=== PATIENT | male | born 1940 | race Caucasian/White ===

== ENCOUNTER 2018-10-28 11:47 | Inpatient (IN) ==
[2018-10-22 10:57] LABS: URINE SOURCE CLEAN CATCH
[2018-10-22 11:02] LABS: BILIRUBIN URINE NEGATIVE (NEGATIVE); BLOOD URINE NEGATIVE (NEGATIVE); COLOR YELLOW; GLUCOSE URINE 70 mg/dL (NEGATIVE); KETONE URINE NEGATIVE (NEGATIVE); LEUKOCYTES URINE MODERATE (NEGATIVE); NITRITE URINE POSITIVE (NEGATIVE); PH URINE 6.5; PROTEIN URINE NEGATIVE (NEGATIVE); SP GRAVITY URINE 1.013; TURBIDITY URINE CLEAR (CLEAR); UR EPITHELIAL CELLS <10 /HPF (<10); URINE BACTERIA 4+ /HPF; URINE RBC <10 /HPF (<10); URINE WBC 20-40 /HPF (<10); UROBILINOGEN URINE NORMAL (NORMAL)
[2018-10-22 11:06] LABS: BASO# 0.05 X1000 (0.0-0.2); BASO% 0.9 % (0.0-0.8); EOS% 5.2 % (0.0-10.0); HEMATOCRIT 45.1 % (42.0-52.0); HEMOGLOBIN 14.7 g/dL (14.0-18.0); IMM GRAN# 0.02 X1000 (0.0-0.04); IMM GRAN% 0.3 % (0.0-0.5); LYMPH# 1.86 X1000 (1.2-3.4); LYMPH% 32.3 % (20.5-51.1); MCH 28.1 PG (27-31); MCHC 32.6 g/dL (33-37); MCV 86.2 FL (81-99); MONO# 0.54 X1000 (0.11-0.59); MONO% 9.4 % (1.7-9.3); MPV 11.5 FL (7.4-10.4); NEUT# 2.99 X1000 (1.4-6.5); NEUT% 51.9 % (42.2-75.2); PLT 201 X1000 (130-400); RBC 5.23 XMIL (4.7-6.1); RDW 14.5 % (11.5-14.5); WBC 5.76 X1000 (4.8-10.8)
[2018-10-22 11:40] LABS: INR 1.01; PROTIME 14.1 Seconds (11.0-16.0)
[2018-10-22 11:41] LABS: PTT 29.4 Seconds (22.3-41.8)
[2018-10-22 11:46] LABS: AGAP 12; BUN 13 mg/dL (8-22); CHLORIDE 101 mmol/L (98-107); COSMO 280; CREATININE 0.9 mg/dL (0.7-1.2); ESTIMATED GFR > 60; GLUCOSE 176 mg/dL (70-104); POTASSIUM 4.3 mmol/L (3.5-5.1); SODIUM 138 mmol/L (136-145); TCO2 25 mmol/L (25-35)
[2018-10-28] MEDS ORDERED: DIPRIVAN 1% ONE (12:13)
[2018-10-28] MEDS ORDERED: LYRICA ONE (12:22)
[2018-10-28] MEDS ORDERED: PEPCID ONE (12:22)
[2018-10-28] MEDS ORDERED: COLACE ONE (12:22)
[2018-10-28] MEDS ORDERED: REGLAN ONE (12:22)
[2018-10-28] MEDS ORDERED: KEFZOL 1 GM/D5W 2 GM/100 ML IVPB ONE (12:22)
[2018-10-28] MEDS ORDERED: CELEBREX ONE (12:22)
[2018-10-28] MEDS ORDERED: LR 1,000 ML ONE (12:23)
[2018-10-28] MEDS ORDERED: DURAMORPH ONE (13:40)
[2018-10-28] MEDS ORDERED: SODIUM CHLORIDE 0.9% ONE (13:40)
[2018-10-28] MEDS ORDERED: CYKLOKAPRON 1,000 MG/NS 2,000 MG/200 ML IVPB ONE (13:40)
[2018-10-28] MEDS ORDERED: SENSORCAINE-MPF 0.5%/EPI 1:200,000 ONE (13:40)
[2018-10-28] MEDS ORDERED: TORADOL ONE (13:40)
[2018-10-28] MEDS ORDERED: EXPAREL 1.3% ONE (13:41)
[2018-10-28] MEDS ORDERED: NEOSPORIN G.U. IRRIGANT ONE ×2 (13:42→13:51)
[2018-10-28] MEDS ORDERED: FENTANYL ONE (14:07)
[2018-10-28] MEDS ORDERED: OFIRMEV 1000 MG/ISOTONIC SOLN 1,000 MG/100 ML BOTTLE ONE (14:20)
[2018-10-28] MEDS ORDERED: DECADRON ONE (14:20)
[2018-10-28] MEDS ORDERED: VANCOMYCIN ONE (14:44)
--- NOTE | 2018-10-28 16:47 | PROGRESS NOTE ---
DATE: 10/28/2018 SUBJECTIVE DATA: Mr. Bazzi is seen postop day 0 of left total knee arthroplasty. He reports that he still has decreased sensation in that leg at this time. He also reports he has no pain at this time. OBJECTIVE DATA: The bandages are clean and dry of the left lower extremity. There is good capillary refill in the toes. There is decreased sensation still at this time due to anesthesia in the extremity. There is negative Homans sign. There is no active drainage. ASSESSMENT: Left total knee arthroplasty. PLAN: We will plan on monitoring Mr. Bazzi overnight. Plan is to hopefully send him home tomorrow with possible home health or outpatient therapy. We will send him home with pain medications and probably aspirin to prevent DVTs. We will check back on him in the morning. Dictated by MARIAA Long for Chang Garcia MD cc: MARIAA Long MD
--- NOTE | 2018-10-28 17:02 | Diag Imaging Result Doc PS360 ---
KNEE 1-2 VIEWS-LEFT - 10/28/2018 INDICATION: l tka TECHNIQUE: Two views COMPARISON: None FINDINGS: There has been left total knee arthroplasty with patellar resurfacing. Alignment is anatomic. No hardware fracture or loosening. IMPRESSION: No complication. Electronically signed by Mike Robles 10/28/2018 5:00 PM
[2018-10-28 17:03] LABS: URINE SOURCE CATH
[2018-10-28 17:11] LABS: BILIRUBIN URINE NEGATIVE (NEGATIVE); BLOOD URINE NEGATIVE (NEGATIVE); COLOR YELLOW; GLUCOSE URINE NEGATIVE (NEGATIVE); KETONE URINE NEGATIVE (NEGATIVE); LEUKOCYTES URINE SMALL (NEGATIVE); NITRITE URINE NEGATIVE (NEGATIVE); PROTEIN URINE NEGATIVE (NEGATIVE); SP GRAVITY URINE 1.015; TURBIDITY URINE CLEAR (CLEAR); UROBILINOGEN URINE NORMAL (NORMAL)
[2018-10-28] MEDS ORDERED: NS 1,000 ML ONE (17:11)
[2018-10-28 17:12] LABS: UR EPITHELIAL CELLS <10 /HPF (<10); URINE BACTERIA NEGATIVE /HPF; URINE RBC <10 /HPF (<10); URINE WBC <10 /HPF (<10)
--- NOTE | 2018-10-28 17:38 | OPERATIVE NOTE ---
PROCEDURE DATE: 10/28/2018 PREOPERATIVE DIAGNOSIS: Degenerative joint disease, left knee. POSTOPERATIVE DIAGNOSIS: Degenerative joint disease, left knee. PROCEDURE PERFORMED: Left total knee replacement. SURGEON: Everardo Garcia MD. AUDIT CONTROL CLERK: MARIAA Long. Mr. Sorensen was necessary for proper retraction and manipulation of the leg during the case. ANESTHESIA: Spinal. COMPLICATION: None. PROCEDURE IN DETAIL: This 78-year-old male presents for left knee replacement. Risks, benefits, and no guarantees were discussed and he is willing to proceed. He was taken to the operating room and satisfactory anesthesia obtained. The left knee was prepped and draped in usual sterile fashion. A time-out was taken to confirm operative site, procedure, and patient. The leg was wrapped with an Esmarch and the tourniquet inflated to 350 mmHg. A midline incision was made over the front of the knee followed by a quad tendon sparing arthrotomy. The patella was everted and resurfaced with freehand technique. The patella was then subluxed laterally and the knee flexed. An intramedullary hole made in the distal femur. Distal femoral cutting block was secured in 5 degrees of valgus and the distal femoral resection made. Afterwards, the femur was sized to a size 7 femoral implant. The 4-in-1 block was secured and the anterior, posterior, and chamfer cuts sequentially made. The PCL was retained for cruciate retaining design, any osteophytes debrided off the femur. Afterwards, the knee was flexed and a PCL retractor placed behind the tibia to protect the PCL neurovascular bundle. Tibial cutting block was secured and tibial resection made. Any osteophytes were debrided about the tibia. The tibia was sized to a size 7 tibial tray. Trial reduction was performed with a 7 tibial tray and a 7 mm thick polyethylene bearing with a size 7 femoral component. Good range of motion and stability was noted. The patella was sized to a 38 medialized dome patella. The drill holes were placed for the patellar implant and femoral component and the trial components removed. The bony surfaces were thoroughly irrigated with pulsatile lavage. A size 7 DePuy ERLinkune rotating platform tibial tray was cemented onto the tibia, followed by a size 7 left cruciate-retaining femoral component and a 38 medialized dome patella. Excess cement was removed with a [place] elevator. While the cement cured, the joint capsule was injected with Exparel for pain management and a Hemovac drain placed. After curing of the cement, a size 7 mm thick rotating platform polyethylene cruciate retaining bearing was inserted into the tibial tray and the knee reduced. Final range of motion was assessed from 0 to 130 degrees with midline patellar tracking and excellent soft tissue balance. The incision and arthrotomy was copiously irrigated with irrigant. It was closed over a drain with #1 Vicryl in the arthrotomy, 2-0 Vicryl in the subcutaneous and skin ally on the skin edges. Sterile dressings completed the closure and the patient was recovered from anesthesia and transferred to the recovery room in stable condition. No intraoperative complications were noted. Instrument count and sponge count was correct at the time of closure. cc: Chang Garcia MD
[2018-10-28] MEDS ORDERED: ZOFRAN IV PRN (18:45)
[2018-10-28] MEDS ORDERED: AMBIEN PO PRN (18:45)
[2018-10-28] MEDS ORDERED: OXY IR PO PRN (18:45)
[2018-10-28] MEDS ORDERED: MORPHINE IV PRN ×3 (18:45)
[2018-10-28] MEDS ORDERED: ZOFRAN ODT PO PRN (18:45)
[2018-10-28] MEDS: PERIDEX MT SCH (20:20)
[2018-10-28] MEDS: CELEBREX PO SCH (20:21)
[2018-10-28] MEDS: ULTRAM PO SCH (20:21)
[2018-10-28] MEDS: AMARYL PO SCH (20:22)
[2018-10-28] MEDS: TYLENOL PO SCH (20:22)
[2018-10-28] MEDS: COLACE PO SCH (20:22)
[2018-10-28] MEDS: SEPTRA DS PO SCH (20:22)
[2018-10-28] MEDS: GLUCOPHAGE XR PO SCH (20:22)
[2018-10-28] MEDS: KEFZOL 2 GM/D5W 2 GM/50 ML IVPB IV SCH (22:50)
[2018-10-29] MEDS: ULTRAM PO SCH ×4 (05:02→22:20)
[2018-10-29] MEDS: TYLENOL PO SCH ×4 (05:02→22:20)
[2018-10-29] MEDS: NS 1,000 ML IV SCH ×2 (05:02→08:52)
[2018-10-29] MEDS: KEFZOL 2 GM/D5W 2 GM/50 ML IVPB IV SCH (05:03)
[2018-10-29 05:59] LABS: HEMATOCRIT 33.5 % (42.0-52.0); HEMOGLOBIN 11.1 g/dL (14.0-18.0)
[2018-10-29 06:11] LABS: CALCIUM 8.4 mg/dL (8.8-10.2); CREATININE 1.2 mg/dL (0.7-1.2); POTASSIUM 4.6 mmol/L (3.5-5.1)
--- NOTE | 2018-10-29 07:18 | PROGRESS NOTE ---
DATE: 10/29/2018 Mr. Bazzi is seen status post total knee replacement. At the present time, he is stable with stable vital signs. We will plan on mobilizing him today and discharging him home. There are no signs of DVT or complication. He does have some minor venous bleeding about the knee. We have decreased him on a home dose of aspirin twice a day to once a day to account for this. He is to return in the interim for any worsening signs or symptoms. We will follow up with him in roughly 12 days. cc: Chang Garcia MD
[2018-10-29] MEDS: PERIDEX MT SCH ×2 (08:53→22:19)
[2018-10-29] MEDS: CELEBREX PO SCH ×2 (08:53→22:21)
[2018-10-29] MEDS: GLUCOPHAGE XR PO SCH ×2 (08:54→22:20)
[2018-10-29] MEDS: JANUVIA PO SCH (08:54)
[2018-10-29] MEDS: COLACE PO SCH ×2 (08:54→22:21)
[2018-10-29] MEDS: AMARYL PO SCH ×2 (08:54→22:20)
[2018-10-29] MEDS: SEPTRA DS PO SCH ×2 (08:55→22:21)
[2018-10-29] MEDS: OXY IR PO PRN (08:58)
[2018-10-29] MEDS: PRINIVIL PO SCH (10:35)
[2018-10-29] MEDS: ASPIRIN PO SCH (10:35)
[2018-10-29] MEDS: ROBAXIN PO PRN (16:57)
[2018-10-30] MEDS: TYLENOL PO SCH ×4 (06:11→21:42)
[2018-10-30] MEDS: ULTRAM PO SCH ×4 (06:11→21:42)
[2018-10-30 08:55] LABS: HEMATOCRIT 26.4 % (42.0-52.0); HEMOGLOBIN 8.5 g/dL (14.0-18.0)
[2018-10-30] MEDS: AMARYL PO SCH ×2 (09:09→20:55)
[2018-10-30] MEDS: GLUCOPHAGE XR PO SCH ×2 (09:09→20:55)
[2018-10-30] MEDS: CELEBREX PO SCH ×2 (09:09→20:55)
[2018-10-30] MEDS: COLACE PO SCH ×2 (09:09→20:55)
[2018-10-30] MEDS: PERIDEX MT SCH ×2 (09:09→20:55)
[2018-10-30] MEDS: SEPTRA DS PO SCH ×2 (09:09→20:55)
[2018-10-30] MEDS: ASPIRIN PO SCH (09:09)
[2018-10-30] MEDS: JANUVIA PO SCH (09:09)
[2018-10-30] MEDS: PRINIVIL PO SCH (09:10)
[2018-10-30] MEDS: OXY IR PO PRN (09:10)
[2018-10-30] MEDS: ROBAXIN PO PRN ×2 (12:33→21:40)
--- NOTE | 2018-10-30 15:07 | PROGRESS NOTE ---
DATE: 10/30/2018 SUBJECTIVE: Mr. Bazzi is a 78-year-old male who is postoperative day 2 from a left total knee replacement. He has been slowly progressing with physical therapy, and he has been having difficulty ambulating. He does have a history of diabetes, and has difficulty with proprioception. 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 OBJECTIVE: He is a well developed, well nourished male. He is alert, oriented , and cooperative with the examination. He is in no acute distress. His vital signs are stable. He is afebrile. His left knee dressing is clean, dry, and intact. Left leg is neurovascularly intact. ASSESSMENT: Stable postoperative day 2 from a left total knee arthroplasty. PLAN: Because he has been slow progressing with physical therapy and because of his comorbidities of diabetes and degenerative disk disease of lumbar spine, we feel that he should become an inpatient and be discharged to rehab. We will continue to monitor him and continue to have him work with physical therapy. Dictated by DEUCE Muhammad for Chang Garcia MD cc: DEUCE Muhammad MD [facility]
[2018-10-31] MEDS: ULTRAM PO SCH ×5 (02:08→22:16)
[2018-10-31] MEDS: TYLENOL PO SCH ×5 (02:08→22:18)
[2018-10-31] MEDS: ROBAXIN PO PRN (05:06)
[2018-10-31 06:12] LABS: HEMATOCRIT 24.3 % (42.0-52.0)
--- NOTE | 2018-10-31 08:10 | PROGRESS NOTE ---
DATE: 10/31/2018 SUBJECTIVE: Zoltan Bazzi is a 78-year-old male who is postoperative day 3 from a left total knee arthroplasty He is awaiting a bed at rehab at this time. He has no new complaints. OBJECTIVE: He is a well developed, well nourished male. He is alert, oriented, and cooperative with the examination. He is in no acute distress. His vital signs are stable. He is afebrile. His left knee incision is clean, dry, and intact. His left leg is grossly neurovascularly intact. LABORATORY: His hemoglobin is 8, and his hematocrit is 24.3. ASSESSMENT: Stable postoperative day 3 from a left total knee arthroplasty with acute blood loss anemia and slow progression in physical therapy. PLAN: We will transfuse 2 units of packed red blood cells. We will change his dressing once he has a bed available at rehab. We will discharge him to rehab. Dictated by DEUCE Muhammad for Chang Garcia MD cc: DEUCE Muhammad MD
[2018-10-31] MEDS: PRINIVIL PO SCH (09:10)
[2018-10-31] MEDS: GLUCOPHAGE XR PO SCH ×2 (09:10→22:15)
[2018-10-31] MEDS: SEPTRA DS PO SCH ×2 (09:10→22:14)
[2018-10-31] MEDS: ASPIRIN PO SCH (09:10)
[2018-10-31] MEDS: PERIDEX MT SCH ×2 (09:11→22:18)
[2018-10-31] MEDS: JANUVIA PO SCH (09:11)
[2018-10-31] MEDS: COLACE PO SCH ×2 (09:11→22:18)
[2018-10-31] MEDS: CELEBREX PO SCH ×2 (09:11→22:16)
[2018-10-31] MEDS: AMARYL PO SCH ×2 (09:11→22:16)
--- NOTE | 2018-10-31 15:00 | Diag Imaging Result Doc PS360 ---
EXAM: CHEST-1 VIEW HISTORY: rehab TECHNIQUE: Chest single view COMPARISON: 07/14/2013 FINDINGS: The lungs are well expanded. The heart is not enlarged. The vessels are not distended. There are no infiltrates. No effusion identified. There is a granuloma in the upper right lung. Right hemidiaphragm is elevated. IMPRESSION: No acute abnormality. Electronically signed by Augusto Donald 10/31/2018 2:57 PM
[2018-11-01] MEDS: ULTRAM PO SCH ×4 (05:28→21:59)
[2018-11-01] MEDS: TYLENOL PO SCH ×4 (05:30→22:01)
--- NOTE | 2018-11-01 10:53 | PROGRESS NOTE ---
DATE: 11/01/2018 SUBJECTIVE: Zoltan Bazzi is a 78-year-old male, who underwent a total knee arthroplasty by Dr. Garcia on Saturday. He is currently awaiting rehab. OBJECTIVE: General: He is a well-developed, well-nourished male. He is alert and cooperative to exam. Vital Signs: Stable. He is afebrile. His hematocrit was 24 yesterday; I do not have a value on that today. We will check that to be certain that he does not need transfusion. Otherwise, his vital signs are stable and he is afebrile. He has had slow progress with therapy, but he was able to walk 45 feet yesterday. ASSESSMENT: Stable left total knee arthroplasty. PLAN: He will likely go to rehab the first part of the week. We will be checking his hematocrit as well. cc: MD Chang Carney MD
[2018-11-01] MEDS: PERIDEX MT SCH ×2 (11:08→21:58)
[2018-11-01] MEDS: AMARYL PO SCH ×2 (11:08→22:00)
[2018-11-01] MEDS: COLACE PO SCH ×2 (11:08→22:00)
[2018-11-01] MEDS: JANUVIA PO SCH (11:09)
[2018-11-01] MEDS: CELEBREX PO SCH ×2 (11:09→22:00)
[2018-11-01] MEDS: ASPIRIN PO SCH (11:10)
[2018-11-01] MEDS: GLUCOPHAGE XR PO SCH ×2 (11:10→22:01)
[2018-11-01] MEDS: SEPTRA DS PO SCH ×2 (11:10→21:59)
[2018-11-01] MEDS: PRINIVIL PO SCH (11:11)
[2018-11-01] MEDS: ROBAXIN PO PRN (17:40)
[2018-11-02] MEDS: ULTRAM PO SCH ×4 (07:37→22:09)
[2018-11-02] MEDS: TYLENOL PO SCH ×4 (07:38→22:08)
[2018-11-02] MEDS: JANUVIA PO SCH (08:38)
[2018-11-02] MEDS: PERIDEX MT SCH ×2 (08:38→21:49)
[2018-11-02] MEDS: ASPIRIN PO SCH (08:38)
[2018-11-02] MEDS: AMARYL PO SCH ×2 (08:39→21:50)
[2018-11-02] MEDS: PRINIVIL PO SCH (08:39)
[2018-11-02] MEDS: GLUCOPHAGE XR PO SCH ×2 (08:39→21:51)
[2018-11-02] MEDS: CELEBREX PO SCH ×2 (08:39→21:50)
[2018-11-02] MEDS: COLACE PO SCH ×2 (08:39→21:50)
[2018-11-02] MEDS: SEPTRA DS PO SCH ×2 (08:39→21:51)
[2018-11-02] MEDS: ROBAXIN PO PRN (11:48)
[2018-11-02 14:12] LABS: HEMATOCRIT 33.7 % (42.0-52.0); HEMOGLOBIN 11.4 g/dL (14.0-18.0)
--- NOTE | 2018-11-02 16:32 | PROGRESS NOTE ---
DATE: 11/02/2018 SUBJECTIVE: Zoltan Bazzi is a 78-year-old male who is postoperative day 5 from a left total knee arthroplasty. He has no complaints. OBJECTIVE: General: He is a well-developed, well-nourished male. He is alert, oriented, and cooperative with exam. Extremities: He has some appropriate bruising. His wound is clean, dry, and intact without sign of infection. LABORATORY: He has had a little bit of a high blood sugar at 214. We rechecked his hematocrit today and after his 2 units it is up to 33.7. ASSESSMENT: Stable left total knee arthroplasty. PLAN: He will likely go to rehab tomorrow when Dr. Garcia returns. I have answered all of their questions today. cc: MD Chang Carney MD
[2018-11-03] MEDS: ULTRAM PO SCH ×2 (04:58→12:10)
[2018-11-03] MEDS: TYLENOL PO SCH ×2 (04:58→12:10)
[2018-11-03] MEDS: SEPTRA DS PO SCH (08:14)
[2018-11-03] MEDS: PRINIVIL PO SCH (08:14)
[2018-11-03] MEDS: ASPIRIN PO SCH (08:14)
[2018-11-03] MEDS: JANUVIA PO SCH (08:14)
[2018-11-03] MEDS: COLACE PO SCH (08:14)
[2018-11-03] MEDS: GLUCOPHAGE XR PO SCH (08:14)
[2018-11-03] MEDS ORDERED: ZOFRAN ODT PO PRN (08:15)
[2018-11-03] MEDS: PERIDEX MT SCH (08:15)
[2018-11-03] MEDS: CELEBREX PO SCH (08:15)
[2018-11-03] MEDS: AMARYL PO SCH (08:15)
[2018-11-03 11:43] VITALS: BP 137/78
--- NOTE | 2018-11-03 15:37 | DISCHARGE SUMMARY ---
ADMISSION DATE: 10/31/2018 DISCHARGE DATE: 11/03/2018 ADMITTING DIAGNOSIS: Degenerative joint disease (DJD), left knee. DISCHARGE DIAGNOSES: 1. Degenerative joint disease (DJD), left knee. 2. Anemia. PRINCIPAL PROCEDURE: Left total knee arthroplasty. PAST MEDICAL HISTORY: Diabetes type 2 and high blood pressure. SURGICAL HISTORY: Left total knee arthroplasty. ALLERGIES: There are no known drug allergies. MEDICATIONS: Glimepiride 2 mg daily. Januvia 100 mg daily. Lisinopril 20 mg daily. Metformin ER 500 mg b.i.d. Robaxin 750 mg t.i.d. p.r.n. muscle spasms. [place] 10 mg q.i.d. p.r.n. pain. Aspirin 325 mg daily. Doxycycline 100 mg b.i.d. PHYSICAL EXAMINATION: General: Patient is alert and oriented. Extremities: He reports he is able to ambulate without much difficulty at this time. Reports there is some swelling in his knee and some bruising in his left leg. He denies calf pain. He has good range of motion at that knee, and there is negative Homans sign. LABS: At discharge, hemoglobin is 11.4 and hematocrit 33.7. HOSPITAL COURSE: Patient was taken to the operating room on 10/28/2018, where he obtained a left total knee arthroplasty. He tolerated procedure well and was taken to the recovery room. He was then brought to the regular surgical floor. Mechanical and chemical DVT prophylaxis were initiated. Routine postoperative antibiotics were administered. Hemovac drain was discontinued on postoperative day 2 with roughly 75 mL of drainage. On postoperative day 2, he was having some pain in that leg with some bruising, and he was not able to walk well with physical therapy that day. Therefore, he walked about 50 feet. He was then changed to inpatient at that time, and we decided that he would be discharged to rehabilitation. His bandages have been clean and dry throughout the hospital course, and there has been a negative Homans sign throughout the hospital stay. He felt like he was ready to discharge on 11/03/2018. The patient is now walking with some assistance and a walker with physical therapy. There is still a mild amount of bruising to his left lower extremity. There are good pedal pulses. DISPOSITION: We will discharge him to rehabilitation today. FOLLOW-UP: He will follow up with follow up with Dr. Garcia within 2 weeks. They will remove the ally in the rehabilitation facility. DISCHARGE INSTRUCTIONS: Printed and over with by the RN. He can go to rehabilitation at this time. Dictated by MARIAA Long for Chang Garcia MD cc: MARIAA Long MD [facility]
== END 2018-11-03 16:06 | DRG 470 ==
LOC: 4N 11:47 → OR 11:47 → 4N 11-01 06:22
PROVIDERS: ADMIT Orthopaedic Surgery Adult Reconstructive Orthopaedic Surgery; ATTEND Orthopaedic Surgery Adult Reconstructive Orthopaedic Surgery
CPT/HCPCS: 36430; 71010; 71045; 73560; 80048; 81001; 82948; 85014; 85018; 85025; 85610; 85730; 86850; 86900; 86901; 86920; 87088; 88305; 88311; 93005; 94761; 94762; 94799; 97110; 97116; 97162; 97530; A9270; C9290; J0131; J0690; J1100; J1885; J2274; J2275; J3010; J3370; J7030; J7120; P9016; Q9974; S0181; S1119; S119; XXXXX